=== PATIENT | female | born 1955 | race Caucasian/White ===

== ENCOUNTER → 2016-10-06 | Outpatient (CLI) | payer BC ==
[~2016-10-06] MED LIST: ALEVE220 M1 PO; ASPIRIN81 M1 PO; CALCIUM + D 6001 TA1 PO; CLARITIN10 MG PO; GLUCOSAMINE-CHO1 CA1 PO; MAXZIDE-25 MG T1 TAB PO; MELOXICAM15 MG PO; PRINIVIL10 MG PO; STOOL SOFTENER100 M1 PO
--- NOTE | ~2016-10-06 | MY29 ---
[facility] A Service of [facility] & [facility] RADIOLOGY TEXT RESULTS PATIENT: BRISEIDA MCCRACKEN LOCATION: [facility] : 55 UNIT #: [id number] AGE: [address]: Rebeca Jackson MD SEX: F ORDER DR: [id number] [facility] [address] [place], [place] [address] [id number] O MR#: [id number] Acc #: [id number] NAME: BRISEIDA MCCRACKEN : 1955 SEX: F STUDY DATE/TIME: 10/06/2016 13:15 UNIT: [facility] ROOM: STUDY DESCRIPTION: MY EMILIE SCREENING W/ CAD BILAT Attending Physician: Rebeca Jackson M.D. Referring Physician: Rebeca Jackson M.D. Ordering Physician: Rebeca Jackson M.D. Primary Care Physician: Suzan Benton A.P.R.N. MEDICAL IMAGING REPORT This report is preliminary unless electronic signature is present EXAM Digital screening mammogram, 10/06/2016, [facility]. HISTORY 61-year-old woman; positive family history, sister age 45, aunt age 40. Annual screening. COMPARISON Comparison mammograms date to 06/20/2006, with most recent 08/27/2015. FINDINGS Digital imaging of each breast was completed, utilizing screening protocol. Review includes FDA-approved CAD device. The breast parenchyma is fatty replaced and stable. There is no dominant mass. There are no suspicious microcalcifications and no architectural deformity. IMPRESSION Negative mammogram. Annual screening recommended. Patients over the age of 40 are entered into a reminder system with target due date for the next mammogram. A result letter will also be sent to the patient. BIRADS: 1 Negative Dictated by... Silvio Arriaza M.D. THIS IS AN ELECTRONICALLY VERIFIED REPORT Silvio Arriaza M.D. at 10/06/2016 3:55 PM CALEB/prabhjot STS. [facility] A Service of [facility] & [facility] RADIOLOGY TEXT RESULTS PATIENT: BRISEIDA MCCRACKEN [id number] : 55 UNIT #: [id number] AGE: [address]: Rebeca Jackson MD SEX: F ORDER DR: TD: 10/06/2016 14:52 JOB #: [id number] MEDICAL IMAGING REPORT Page 1 of 1 COPY
== END | disposition home or self-care (01) ==
LOC: CWCC 12:50
DX: Z12.31 Encounter for screening mammogram for malignant neoplasm of breast (principal); Z80.3 Family history of malignant neoplasm of breast
CPT/HCPCS: G0202